=== PATIENT | female | born 1980 | race Caucasian/White ===

== ENCOUNTER → 2017-07-02 | Outpatient (CLI) | payer OTHER | LOC: FIMAGING 12:13 | PROVIDERS: ATTEND Advanced Practice Midwife | DX: O09.522 Supervision of elderly multigravida, second trimester (principal); Z3A.20 20 weeks gestation of pregnancy ==

== ENCOUNTER → 2017-07-31 | Outpatient (CLI) | payer OTHER | LOC: FIMAGING 14:21 | PROVIDERS: ATTEND Advanced Practice Midwife | DX: O09.522 Supervision of elderly multigravida, second trimester (principal); O35.8XX0 Maternal care for other (suspected) fetal abnormality and damage, not applicable or unspecified; Z3A.24 24 weeks gestation of pregnancy ==

== ENCOUNTER → 2017-09-25 | Outpatient (CLI) | payer OTHER | LOC: FIMAGING 13:45 | PROVIDERS: ATTEND Advanced Practice Midwife | DX: O09.523 Supervision of elderly multigravida, third trimester (principal); O26.833 Pregnancy related renal disease, third trimester; Z3A.32 32 weeks gestation of pregnancy ==

== ENCOUNTER 2017-11-07 13:20 | Inpatient (IN) | payer OTHER ==
[2017-11-07] MEDS ORDERED: MISOPROSTOL 200 MCG TAB PR PRN (14:25)
[2017-11-07] MEDS ORDERED: LIDOCAINE 1% 300 MG/30 ML SDV SC PRN (14:25)
[2017-11-07] MEDS ORDERED: IBUPROFEN 600 MG TAB PO PRN (14:25)
[2017-11-07] MEDS ORDERED: OLIVE OIL 118 ML BTL MISC PRN (14:25)
[2017-11-07] MEDS ORDERED: OXYTOCIN/RINGERS LACTATE 1,000 ML IV PRN (14:25)
[2017-11-07] MEDS ORDERED: LR 1,000 ML IV PRN (14:25)
[2017-11-07] MEDS ORDERED: EPSOM SALT 454 GM TP PRN (14:25)
[2017-11-07] MEDS ORDERED: TERBUTALINE SULFATE 1 MG/ML VIAL IV PRN (14:25)
[2017-11-07 14:42] LABS: PLATELET COUNT 209 10^3/uL (150-400)
[2017-11-07] MEDS ORDERED: LIDOCAINE 1% 300 MG/30 ML SDV ONE (15:06)
[2017-11-07] MEDS ORDERED: OLIVE OIL 118 ML BTL ONE (15:06)
[2017-11-07] MEDS ORDERED: AMMONIA AROMATIC 1 EACH AMP IH ONE (15:06)
[2017-11-07] MEDS ORDERED: TERBUTALINE SULFATE 1 MG/ML VIAL ONE (15:07)
[2017-11-07] MEDS ORDERED: MISOPROSTOL 200 MCG TAB ONE (15:07)
[2017-11-07] MEDS ORDERED: OXYTOCIN 10 UNIT/ML VIAL ONE (15:07)
[2017-11-07] MEDS ORDERED: SIMETHICONE 80 MG TAB CHEW PO PRN (17:06)
[2017-11-07] MEDS ORDERED: HYDROCORTISONE 0.5% CREAM TP PRN (17:06)
[2017-11-07] MEDS ORDERED: HYDROCODONE/APAP 5/325 TAB PO PRN (17:06)
--- NOTE | 2017-11-07 17:23 | GHP ---
[f rep st] HISTORY AND PHYSICAL DATE OF ADMISSION: 11/07/2017 ADMITTING DIAGNOSES: 1. Intrauterine at 38 weeks and 4 days. 2. Active labor. HISTORY OF PRESENT ILLNESS: The patient is a 37-year-old 2, para 1-0-0- 1, at 38 and 4 weeks with estimated due date 11/17/2017, by LMP 02/10/2017. This is also consistent with an 8-week ultrasound. The patient presents to labor and delivery with complaints of contractions since this morning. Denies any leakage of fluid or vaginal bleeding. States good movement. The patient does have good care at [facility], and presented in her first trimester. is complicated by an advanced maternal age. All genetic testing was negative. The patient did have a level 2 ultrasound with MFM that did reveal pyelectasis noted at 4.9 mm, and there were suboptimal views. A Followup ultrasound a month later revealed complete, normal anatomic survey, and pyelectasis that was stable. Growth ultrasound at 32 weeks showed an estimated weight of 95 percentile and pyelectasis had resolved. The patient did develop anemia of , and tolerating iron. The patient did receive Tdap in . GBS culture is negative. PAST OB HISTORY: In July 2015, she delivered a viable female infant at 38 weeks 4 days via vaginal delivery, weighing 6 pounds 14 ounces; Rubella was low immune. GYNECOLOGIC HISTORY: Age of menarche 11. Cycles every 28 days for 5 days. LMP 02/10/2017. Positive test 03/16/2017. Patient denies a history of sexually-transmitted diseases. Does have a history of an abnormal Pap smear about 2 years ago with repeat pap that was normal. History of OCPs in the past. MEDICATIONS: vitamins and iron. ALLERGIES: NKDA PAST MEDICAL HISTORY: Unremarkable PAST SURGICAL HISTORY: Shoulder surgery in 2000; wisdom teeth extraction SOCIAL HISTORY: She is and lives with her and their daughter, Mar. Denies any current alcohol, tobacco or illicit drug use. FAMILY HISTORY: Unremarkable. REVIEW OF SYSTEMS: 10-point review of systems is negative; pertinent positives noted in HPI. LABS: Patient is A+, antibody negative; HIV negative; Hepatitis B surface antigen negative; RPR nonreactive; Rubella immune; Innatal screen negative. MSAFP negative; 1hr GTT wnl. GBS culture is negative. PHYSICAL EXAM: On admission, vital signs are stable and patient is afebrile. GENERAL: Well nourished, well developed female; Alert and oriented x 3, NAD. SKIN: Warm, dry without rash. CARDIOVASCULAR: Heart is regular, rate and rhythm. RESPIRATORY: Lungs clear to auscultation bilaterally. ABDOMEN: Gravid, soft, nontender. PELVIC: On exam, cervix is 6 cm dilated; intact. EXTREMITIES: Normal to inspection without edema or calf tenderness. heart tones: Cat I strip with baseline 140's, positive accels, no decels, moderate variability. On toco, contractions every 3-4 minutes. ASSESSMENT/PLAN: Patient is a 37 y/o @ 38 4/7 weeks who presents in active labor 1. Admit to L&D for expectant management. 2. GBS negative, no prophylactic abx needed. 3. Anticipate . /[id number]/MODL MTDD
--- NOTE | 2017-11-07 18:13 | OBDEL ---
Info Type: Vaginal Presentation at Delivery: Vertex L&D Analgesia/Anesthesia Type: Local GBS+: No Intrapartum Medications: Discontinued Medications Generic Name Dose Route Start Last Admin Trade Name Fabian PRN Reason Stop Dose Admin Ibuprofen 600 mg 11/07/17 14:25 11/07/17 16:23 Motrin PO 600 mg ONCE PRN Administration post , pain - Hospital Course Intrapartum: 11/07/17 18:10 IUP @ 38 4/7 weeks in active labor; GBS neg; AMA with neg NIPT Indications for Delivery: Spontaneous Labor Vaginal Delivery - Delivery Provider Delivery Physician/CNM: Denice Sanders - Labor and Delivery Onset of Contractions Date: 11/07/17 Onset of Contractions Time: 11:00 Onset of Contractions Type: Spontaneous Rupture of Membranes Date: 11/07/17 Rupture of Membranes Time: 15:15 Rupture of Membranes Type: Spontaneous Amniotic Fluid Color: Clear Dilation Complete Date: 11/07/17 Dilation Complete Time: 15:22 Placenta Delivery Date: 11/07/17 Placenta Delivery Time: 15:53 Total Hours of Labor: 4 Laceration: 2nd Degree Repair: 3-0, Vicryl Vaginal Sponge Count Correct: Yes Vaginal Needle Count Correct: Yes Vaginal Sweep Performed: Yes EBL: 300 cc Delivery Events: None Delivery Comment: A viable female born at 1549 with 8 and 9 Apgars over intact perineum. No nuchal cord noted. Delayed cord clamping x 60 sec. to maternal abdomen. Cord blood obtained. Placenta delivered intact spontaneously with 3- vc. Inspection revealed 2nd degree lac which was repaired with 3-0 Vicryl. FF below umbilicus with minimal bleeding noted. Pt norma well. No complications. [place] Data SIMBA: 11/17/17 Gestational Age: 38 week(s) and 4 day(s) Jim[place] Delivery Date: 11/07/17 Delivery Time: 15:49 Sex of : Female Weight (gm): 3222 kg Score (1 Min): 8 Score (5 Min): 9 ICD10 Worksheet Patient Problems: Problems Problem Status Onset (spontaneous vaginal delivery) Acute
[2017-11-07] MEDS: IBUPROFEN 600 MG TAB PO SCH (22:41)
[2017-11-07] MEDS: IRON POLYSAC/IRON HEME 28 MG TAB PO SCH (22:41)
[2017-11-08] MEDS: IBUPROFEN 600 MG TAB PO SCH ×4 (04:55→22:59)
[2017-11-08] MEDS: DOCUSATE SODIUM 100 MG CAP PO PRN ×2 (07:52→20:02)
--- NOTE | 2017-11-08 10:09 | OBPP ---
Progress Note Assessment/Plan: Assessment: [id number] s/p PPD#1 anemia Plan: routine PP care support start po iron plan d/c home 24 hours 11/08/17 10:06 Subjective/ Course: 11/08/17 10:07 pt doing well, she denies any severe pain or heavy bleeding. she is well. she is ambulating and voiding without difficulty. Objective: 11/07/17 14:25 Patient ABO/Rh A POSITIVE 11/07/17 14:25 Temp Pulse Resp BP Pulse Ox 36.5 C 50 L 16 119/63 96 11/08/17 08:02 11/08/17 08:02 11/08/17 08:02 11/08/17 08:02 11/08/17 08:02 Uterine Position/Fundal Height: Umbilicus -2, Midline Uterine Tone: Firm Physical Exam - Physical Exam General Appearance: WD/WN, alert, no apparent distress Neck: supple Respiratory: normal breath sounds Cardiac/Chest: regular rate, rhythm Abdomen: non-tender, soft Skin: normal color, warm/dry Neuro/Psych: alert, normal mood/affect, oriented x 3
[2017-11-08] MEDS: FERROUS SULFATE 325 MG TAB PO SCH ×2 (11:08→20:02)
[2017-11-08] MEDS: IRON POLYSAC/IRON HEME 28 MG TAB PO SCH (11:09)
[2017-11-09] MEDS: IBUPROFEN 600 MG TAB PO SCH ×2 (04:53→11:31)
[2017-11-09] MEDS: DOCUSATE SODIUM 100 MG CAP PO PRN (08:48)
[2017-11-09] MEDS: FERROUS SULFATE 325 MG TAB PO SCH (08:48)
[2017-11-09 10:31] VITALS: BP 114/70
--- NOTE | 2017-11-09 10:48 | OBPP ---
Progress Note Assessment/Plan: Assessment:37 now 2, PPD #2 s/p , doing well, desires homegoing. Plan:DC home, pp instructions reviewed, ssx pp depression reviewed. See dc summary. 11/09/17 10:44 Subjective/ Course: 11/08/17 10:07 pt doing well, she denies any severe pain or heavy bleeding. she is well. she is ambulating and voiding without difficulty. 11/09/17 10:46 Pt doing well. Ambulating, voiding without difficulty. Pain well controlled with ibuprofen. going well. Objective: 11/07/17 14:25 Patient ABO/Rh A POSITIVE 11/07/17 14:25 Temp Pulse Resp BP Pulse Ox 36.7 C 50 L 14 114/70 98 11/09/17 08:00 11/09/17 08:00 11/09/17 08:00 11/09/17 08:00 11/09/17 08:00 gen - pleasant, NAD CV - RRR chest - CTAB abd - soft, +BS, fundus firm at u-2 ext - no edema, no calf tenderness Uterine Position/Fundal Height: Umbilicus -2 Uterine Tone: Firm
--- NOTE | 2017-11-09 12:25 | OBGCSDC ---
General Delivery Information - General Info : 2 Para: 2 Abortions: 0 Type: Vaginal L&D Analgesia/Anesthesia Type: Local Admission Date: 11/07/17 Labs: Patient ABO/Rh A POSITIVE 11/07/17 14:25 Hct 34.9 % (38.0-47.0) L 11/07/17 14:25 - Hospital Course Intrapartum: 11/07/17 18:10 IUP @ 38 4/7 weeks in active labor; GBS neg; AMA with neg NIPT : 11/08/17 10:07 pt doing well, she denies any severe pain or heavy bleeding. she is well. she is ambulating and voiding without difficulty. 11/09/17 10:46 Pt doing well. Ambulating, voiding without difficulty. Pain well controlled with ibuprofen. going well. Vaginal - Delivery Provider Delivery Physician/CNM: Denice Sanders - Diagnosis Labor: Spontaneous Rupture of Membranes Type: Spontaneous Amniotic Fluid Color: Clear Laceration: 2nd Degree Repair: 3-0, Vicryl Delivery Events: None - Delivery EBL: 300 cc Data SIMBA: 11/17/17 Gestational Age: 38 week(s) and 6 day(s) Jim[place] Delivery Date: 11/07/17 Delivery Time: 15:49 Sex of : Female Weight (gm): 3222 kg Score (1 Min): 8 Score (5 Min): 9 Discharge Information - Discharge Information Condition: Good Instruction/Follow Up: See Instruction Sheet, Four Weeks, Six Weeks
== END 2017-11-09 12:00 | disposition home or self-care (01) | DRG 775 ==
LOC: FLD 13:20 → FOB 19:22
PROVIDERS: ADMIT Obstetrics & Gynecology; ATTEND Obstetrics & Gynecology
PROC: 10E0XZZ Delivery of Products of Conception, External Approach (ICD-10-PCS; principal; 2017-11-07)
PROC: 0KQM0ZZ Repair Perineum Muscle, Open Approach (ICD-10-PCS; principal; 2017-11-07)
DX: O70.1 Second degree perineal laceration during delivery (principal); Z37.0 Single live birth; Z3A.38 38 weeks gestation of pregnancy; O99.02 Anemia complicating childbirth; D64.9 Anemia, unspecified
CPT/HCPCS: J2590; J3105